=== PATIENT | female | born 1960 | race Caucasian/White ===

== ENCOUNTER 2018-05-27 06:44 | Day surgery (SDC) | payer OTHER ==
[~2018-05-27] VITALS: Ht 170.2 cm; Wt 104.8 kg
[2018-05-27] MEDS ORDERED: METF-988 PO (08:51)
[2018-05-27] MEDS ORDERED: ATOR20TA PO (08:51)
[2018-05-27] MEDS ORDERED: KETOROLAC 30 MG/ML VIAL ONE (09:19)
[2018-05-27] MEDS ORDERED: LIDOCAINE 2% 100 MG/5 ML UJET TP ONE (09:19)
== END 2018-05-27 10:30 | disposition home or self-care (01) ==
LOC: MDS 06:44 → MMU 06:46 → MDS 10:30
PROVIDERS: ATTEND Internal Medicine Gastroenterology
DX: D12.3 Benign neoplasm of transverse colon (principal); K64.8 Other hemorrhoids; E78.5 Hyperlipidemia, unspecified; G47.30 Sleep apnea, unspecified; E11.9 Type 2 diabetes mellitus without complications; E66.9 Obesity, unspecified; Z68.36 Body mass index [BMI] 36.0-36.9, adult; Z79.899 Other long term (current) drug therapy; Z98.51 Tubal ligation status; Z87.891 Personal history of nicotine dependence
CPT/HCPCS: 45385; 82948; J1885